=== PATIENT | female | born 1990 | race Caucasian/White ===

== ENCOUNTER 2020-09-20 10:11 | Inpatient (IN) | payer BC ==
[~2020-09-20] VITALS: Ht 167.6 cm; Wt 158.8 kg
[2020-09-20] MEDS ORDERED: SODIUM CHLORIDE 0.9% 1000ML 1,000 ML IV STA (10:29)
[2020-09-20] MEDS: CEFTRIAXONE 1 GM in SODIUM CHLORIDE 0.9% 50ML 50 ML IV SCH (10:44)
[2020-09-20] MEDS: AZITHROMYCIN 500MG/NS 250 ML 250 ML IV SCH (10:44)
[2020-09-20] MEDS ORDERED: ACETAMINOPHEN 325 MG TAB PO ONE (10:45)
[2020-09-20] MEDS ORDERED: DEXAMETHASONE SOD PHOS 10 MG/1 ML VIAL ONE (10:47)
[2020-09-20] MEDS ORDERED: CEFTRIAXONE 1 GM VIAL ONE (10:48)
[2020-09-20] MEDS ORDERED: SODIUM CHLORIDE 0.9% 1000ML 1,000 ML ONE (10:48)
[2020-09-20] MEDS ORDERED: SODIUM CHLORIDE 0.9% 50ML 50 ML ONE ×2 (10:48→13:13)
[2020-09-20] MEDS ORDERED: AZITHROMYCIN 500MG/NS 250 ML 250 ML ONE (10:48)
[2020-09-20 10:50] LABS: BASOPHILS % 0.2 % (0.0-1.0); EOSINOPHILS % 0.2 % (0.0-6.0); HEMOGLOBIN 14.8 g/dL (12.0-16.0); MEAN CORPUSCULAR HEMOGLOBIN 27.8 pg (28-32); MEAN CORPUSCULAR HGB CONC 32.9 g/dL (31-35); MEAN CORPUSCULAR VOLUME 84.6 fL (81-99); MONOCYTES # (AUTO) 0.4 (0.2-0.8); MONOCYTES % 7.7 % (4.4-11.3); NEUTROPHILS % 73.3 % (38.7-80.0); PLATELET COUNT 261 x10e3/uL (140-360); RED BLOOD COUNT 5.32 x10e6/uL (3.6-5.1); RED CELL DISTRIBUTION WIDTH 13.2 % (11.7-14.4)
[2020-09-20] MEDS ORDERED: ONDANSETRON HCL INJ 2MG/ML 2ML 2 MG/ML VIAL IV NR (11:00)
[2020-09-20 11:13] LABS: ALANINE AMINOTRANSFERASE 64 IU/L (0-55); ALBUMIN 3.7 g/dL (3.5-5.0); ALBUMIN/GLOBULIN RATIO 0.8 (0.8-2.0); ALKALINE PHOSPHATASE 70 IU/L (40-150); ANION GAP 16.5 mmol/L (8-16); BLOOD UREA NITROGEN 10 mg/dL (7-26); BUN/CREATININE RATIO 12 (6-25); CALCIUM 8.7 mg/dL (8.4-10.2); CARBON DIOXIDE 27 mmol/L (22-29); CHLORIDE 97 mmol/L (98-107); CREATINE KINASE 270 IU/L (29-168); CREATININE, SERUM 0.81 mg/dL (0.57-1.11); EST GLOMERULAR FILTRATION RATE > 60 ML/MIN (60-); GLUCOSE 105 mg/dL (74-118); POTASSIUM 3.5 mmol/L (3.5-5.1); SODIUM 137 mmol/L (136-145)
[2020-09-20] MEDS ORDERED: DEXAMETHASONE SOD PHOS 10 MG/1 ML VIAL IV NR (11:15)
[2020-09-20] MEDS ORDERED: SODIUM CHLORIDE 0.9% 1000ML 1,000 ML IV SCH (12:15)
[2020-09-20] MEDS ORDERED: DIPHENHYDRAMINE HCL INJ 50 MG/ML VIAL IV NR (13:00)
[2020-09-20] MEDS ORDERED: REMDESIVIR 200MG/NS 100ML 200 MG in SODIUM CHLORIDE 0.9% 100 ML 100 ML IV ONE (13:00)
[2020-09-20] MEDS ORDERED: FAMOTIDINE 20 MG/2 ML VIAL IV NR (13:00)
[2020-09-20] MEDS: ENOXAPARIN SOD INJ 40 MG/0.4 ML SYR SC SCH (13:08)
[2020-09-20 17:31] VITALS: BP 135/84
[2020-09-20] MEDS: FAMOTIDINE 20 MG/2 ML VIAL IV SCH (18:00)
[2020-09-20 18:17] VITALS: BP 135/84
[2020-09-20 18:45] VITALS: BP 135/84
[2020-09-20 18:46] VITALS: BP 135/84
[2020-09-20] MEDS ORDERED: LOSARTAN-HCTZ1 EACH PO (18:51)
[2020-09-20] MEDS: GUAIFENESIN/CODEINE 10 ML CUP PO PRN (20:50)
[2020-09-20] MEDS ORDERED: ZOLPIDEM TARTRATE 5 MG TAB PO PRN (21:00)
[2020-09-20 21:18] VITALS: BP 126/74
[2020-09-20 21:30] VITALS: BP 126/74
[2020-09-21] VITALS (8 sets, daily range): BP systolic 114–132; BP diastolic 66–87
[2020-09-21] MEDS ORDERED: ONDANSETRON HCL INJ 2MG/ML 2ML 2 MG/ML VIAL IV PRN (00:30)
[2020-09-21] MEDS ORDERED: HYDRALAZINE HCL 20 MG/ML VIAL IV PRN (00:30)
[2020-09-21] MEDS ORDERED: ACETAMINOPHEN 325 MG TAB PO PRN (00:30)
[2020-09-21 05:15] LABS: BASOPHILS % 0.2 % (0.0-1.0); HEMATOCRIT 40.4 % (34.2-44.1); LYMPHOCYTES # (AUTO) 1.2 (1.0-3.2); LYMPHOCYTES % 25.7 % (18.0-39.1); MEAN CORPUSCULAR HEMOGLOBIN 27.5 pg (28-32); MEAN CORPUSCULAR HGB CONC 32.2 g/dL (31-35); MEAN CORPUSCULAR VOLUME 85.4 fL (81-99); MONOCYTES # (AUTO) 0.4 (0.2-0.8); MONOCYTES % 8.4 % (4.4-11.3); NEUTROPHILS % 65.1 % (38.7-80.0); PLATELET COUNT 261 x10e3/uL (140-360); RED BLOOD COUNT 4.73 x10e6/uL (3.6-5.1); RED CELL DISTRIBUTION WIDTH 13.3 % (11.7-14.4)
[2020-09-21 05:50] LABS: ALANINE AMINOTRANSFERASE 54 IU/L (0-55); ALBUMIN 3.3 g/dL (3.5-5.0); ALBUMIN/GLOBULIN RATIO 0.8 (0.8-2.0); ALKALINE PHOSPHATASE 58 IU/L (40-150); ANION GAP 14.5 mmol/L (8-16); BLOOD UREA NITROGEN 9 mg/dL (7-26); BUN/CREATININE RATIO 13 (6-25); CALCIUM 8.5 mg/dL (8.4-10.2); CARBON DIOXIDE 25 mmol/L (22-29); CHLORIDE 103 mmol/L (98-107); CREATININE, SERUM 0.68 mg/dL (0.57-1.11); EST GLOMERULAR FILTRATION RATE > 60 ML/MIN (60-); GLUCOSE 120 mg/dL (74-118); POTASSIUM 3.5 mmol/L (3.5-5.1); SODIUM 139 mmol/L (136-145)
[2020-09-21 06:07] LABS: MAGNESIUM 2.1 MG/DL (1.3-2.1); PHOSPHORUS 2.8 MG/DL (2.3-4.7)
[2020-09-21 06:28] LABS: THYROID STIMULATING HORMONE 0.319 uIU/mL (0.350-4.940)
[2020-09-21] MEDS ORDERED: DEXAMETHASONE 4 MG TAB PO SCH (09:00)
[2020-09-21] MEDS: CEFTRIAXONE 1 GM in SODIUM CHLORIDE 0.9% 50ML 50 ML IV SCH (09:22)
[2020-09-21] MEDS: ENOXAPARIN SOD INJ 40 MG/0.4 ML SYR SC SCH ×2 (09:22→10:00)
[2020-09-21] MEDS: FAMOTIDINE 20 MG/2 ML VIAL IV SCH ×2 (09:22→16:30)
[2020-09-21] MEDS: DEXAMETHASONE SOD PHOS 10 MG/1 ML VIAL IV SCH (10:00)
[2020-09-21] MEDS: BENZONATATE 100 MG CAP PO PRN (11:00)
[2020-09-21] MEDS: REMDESIVIR 100MG/NS 100ML 100 MG in SODIUM CHLORIDE 0.9% 100 ML 100 ML IV SCH (13:24)
[2020-09-21] MEDS: GUAIFENESIN/CODEINE 10 ML CUP PO PRN (21:33)
[2020-09-22] VITALS (11 sets, daily range): BP systolic 118–135; BP diastolic 78–85
[2020-09-22] MEDS: GUAIFENESIN/CODEINE 10 ML CUP PO PRN ×2 (03:02→19:33)
[2020-09-22 05:56] LABS: BASOPHILS % 0.1 % (0.0-1.0); HEMATOCRIT 39.9 % (34.2-44.1); HEMOGLOBIN 12.9 g/dL (12.0-16.0); LYMPHOCYTES # (AUTO) 1.7 (1.0-3.2); LYMPHOCYTES % 19.3 % (18.0-39.1); MEAN CORPUSCULAR HEMOGLOBIN 27.7 pg (28-32); MEAN CORPUSCULAR HGB CONC 32.3 g/dL (31-35); MEAN CORPUSCULAR VOLUME 85.8 fL (81-99); MONOCYTES # (AUTO) 0.7 (0.2-0.8); MONOCYTES % 7.3 % (4.4-11.3); NEUTROPHILS # (AUTO) 6.5 (2.1-6.9); NEUTROPHILS % 72.6 % (38.7-80.0); PLATELET COUNT 277 x10e3/uL (140-360); RED BLOOD COUNT 4.65 x10e6/uL (3.6-5.1); RED CELL DISTRIBUTION WIDTH 13.2 % (11.7-14.4)
[2020-09-22 06:49] LABS: ANION GAP 14.7 mmol/L (8-16); BLOOD UREA NITROGEN 15 mg/dL (7-26); BUN/CREATININE RATIO 21 (6-25); CALCIUM 8.5 mg/dL (8.4-10.2); CARBON DIOXIDE 25 mmol/L (22-29); CHLORIDE 104 mmol/L (98-107); EST GLOMERULAR FILTRATION RATE > 60 ML/MIN (60-); GLUCOSE 128 mg/dL (74-118); POTASSIUM 3.7 mmol/L (3.5-5.1); SODIUM 140 mmol/L (136-145)
[2020-09-22] MEDS: CEFTRIAXONE 1 GM in SODIUM CHLORIDE 0.9% 50ML 50 ML IV SCH (09:02)
[2020-09-22] MEDS: DEXAMETHASONE SOD PHOS 10 MG/1 ML VIAL IV SCH (09:02)
[2020-09-22] MEDS: FAMOTIDINE 20 MG/2 ML VIAL IV SCH ×2 (09:02→16:41)
[2020-09-22] MEDS: AZITHROMYCIN 500MG/NS 250 ML 250 ML IV SCH (09:02)
[2020-09-22] MEDS: ENOXAPARIN SOD INJ 40 MG/0.4 ML SYR SC SCH (09:03)
[2020-09-22] MEDS: LOSARTAN POTASSIUM 25 MG TAB PO SCH (09:03)
[2020-09-22] MEDS ORDERED: SODIUM CHLORIDE 0.9% 250ML 250 ML ONE (09:33)
[2020-09-22] MEDS: REMDESIVIR 100MG/NS 100ML 100 MG in SODIUM CHLORIDE 0.9% 100 ML 100 ML IV SCH (13:23)
[2020-09-22 14:38] LABS: ANION GAP 14.8 mmol/L (8-16); BLOOD UREA NITROGEN 15 mg/dL (7-26); BUN/CREATININE RATIO 20 (6-25); CALCIUM 8.4 mg/dL (8.4-10.2); CARBON DIOXIDE 26 mmol/L (22-29); CHLORIDE 106 mmol/L (98-107); CREATININE, SERUM 0.74 mg/dL (0.57-1.11); EST GLOMERULAR FILTRATION RATE > 60 ML/MIN (60-); GLUCOSE 119 mg/dL (74-118); POTASSIUM 3.8 mmol/L (3.5-5.1); SODIUM 143 mmol/L (136-145)
[2020-09-23] VITALS (11 sets, daily range): BP systolic 123–133; BP diastolic 74–91
[2020-09-23] MEDS: CEFTRIAXONE 1 GM in SODIUM CHLORIDE 0.9% 50ML 50 ML IV SCH (08:41)
[2020-09-23] MEDS: LOSARTAN POTASSIUM 25 MG TAB PO SCH (08:41)
[2020-09-23] MEDS: FAMOTIDINE 20 MG/2 ML VIAL IV SCH ×2 (08:41→16:40)
[2020-09-23] MEDS: DEXAMETHASONE SOD PHOS 10 MG/1 ML VIAL IV SCH (08:41)
[2020-09-23] MEDS: ENOXAPARIN SOD INJ 40 MG/0.4 ML SYR SC SCH (08:44)
[2020-09-23] MEDS ORDERED: SODIUM CHLORIDE 0.9% IV SCH (09:00)
[2020-09-23] MEDS ORDERED: AZITHROMYCIN IV SCH (09:00)
[2020-09-23] MEDS ORDERED: DIPHENHYDRAMINE HCL 25 MG CAP PO ONE (11:00)
[2020-09-23] MEDS: REMDESIVIR 100MG/NS 100ML 100 MG in SODIUM CHLORIDE 0.9% 100 ML 100 ML IV SCH (13:08)
[2020-09-23] MEDS ORDERED: DIPHENHYDRAMINE HCL 25 MG CAP PO PRN (14:30)
[2020-09-23] MEDS: BENZONATATE 100 MG CAP PO PRN (20:39)
[2020-09-24] VITALS: BP 130/89
[2020-09-24 05:05] LABS: BASOPHILS % 0.3 % (0.0-1.0); HEMATOCRIT 41.4 % (34.2-44.1); HEMOGLOBIN 13.6 g/dL (12.0-16.0); LYMPHOCYTES # (AUTO) 2.3 (1.0-3.2); LYMPHOCYTES % 21.6 % (18.0-39.1); MEAN CORPUSCULAR HEMOGLOBIN 27.8 pg (28-32); MEAN CORPUSCULAR HGB CONC 32.9 g/dL (31-35); MEAN CORPUSCULAR VOLUME 84.5 fL (81-99); MONOCYTES # (AUTO) 0.7 (0.2-0.8); MONOCYTES % 6.6 % (4.4-11.3); NEUTROPHILS # (AUTO) 7.3 (2.1-6.9); NEUTROPHILS % 69.4 % (38.7-80.0); PLATELET COUNT 325 x10e3/uL (140-360); RED CELL DISTRIBUTION WIDTH 12.9 % (11.7-14.4)
[2020-09-24 05:07] VITALS: BP 131/63
[2020-09-24 05:37] LABS: BLOOD UREA NITROGEN 20 mg/dL (7-26); BUN/CREATININE RATIO 29 (6-25); CALCIUM 8.4 mg/dL (8.4-10.2); CARBON DIOXIDE 26 mmol/L (22-29); CHLORIDE 104 mmol/L (98-107); CREATININE, SERUM 0.69 mg/dL (0.57-1.11); EST GLOMERULAR FILTRATION RATE > 60 ML/MIN (60-); GLUCOSE 126 mg/dL (74-118); MAGNESIUM 2.2 MG/DL (1.3-2.1); SODIUM 140 mmol/L (136-145)
[2020-09-24 08:08] VITALS: BP 125/85
[2020-09-24 08:35] VITALS: BP 125/85
[2020-09-24] MEDS: DEXAMETHASONE SOD PHOS 10 MG/1 ML VIAL IV SCH (08:55)
[2020-09-24] MEDS: LOSARTAN POTASSIUM 25 MG TAB PO SCH (08:55)
[2020-09-24] MEDS: FAMOTIDINE 20 MG/2 ML VIAL IV SCH (08:55)
[2020-09-24] MEDS: ENOXAPARIN SOD INJ 40 MG/0.4 ML SYR SC SCH (10:00)
[2020-09-24] MEDS ORDERED: Diphenhydramine Hcl PO (12:06)
[2020-09-24] MEDS ORDERED: ACETAMINOPHEN325 M1 PO (12:06)
[2020-09-24] MEDS ORDERED: DECADRON4 M1 PO (12:06)
[2020-09-24] MEDS: REMDESIVIR 100MG/NS 100ML 100 MG in SODIUM CHLORIDE 0.9% 100 ML 100 ML IV SCH (12:07)
[2020-09-24] MEDS ORDERED: ONDANSETRON HCL 4 MG ORAL DISINTEGRATING TAB PO PRN (13:30)
[2020-09-24] MEDS ORDERED: FAMOTIDINE 20 MG TAB PO SCH (16:30)
== END 2020-09-24 13:40 | disposition home or self-care (01) | DRG 177 ==
LOC: ER 10:21 → ERHOLD 12:00 → MED/SURG3 17:15
PROVIDERS: ADMIT Internal Medicine; ATTEND Internal Medicine
DX: U07.1 COVID-19 (principal); J12.9 Viral pneumonia, unspecified; J96.00 Acute respiratory failure, unspecified whether with hypoxia or hypercapnia; J96.01 Acute respiratory failure with hypoxia; Z68.43 Body mass index [BMI] 50.0-59.9, adult; E66.01 Morbid (severe) obesity due to excess calories; I10 Essential (primary) hypertension; K76.0 Fatty (change of) liver, not elsewhere classified; L29.9 Pruritus, unspecified
CPT/HCPCS: 36415; 71045; 71250; 80048; 80053; 82550; 82553; 83036; 83735; 83880; 84100; 84443; 84484; 85025; 87040; 99284; J0456; J0696; J1100; J1200; J1650; J7030; J7050